=== PATIENT | male | born 1955 ===

== ENCOUNTER 2017-02-04 08:44 | Emergency (ER) | payer OTHER, MEDICAID ==
[2017-02-04 08:48] VITALS: O2SAT 98
[2017-02-04] MEDS ORDERED: Naproxen 550 mg Tab PO STA (09:01)
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
[2017-02-04 10:05] VITALS: BP 137/87; PULSE 80; RESP 20; TEMP 97.9
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
--- NOTE | 2017-02-04 16:03 | RAD ---
PROCEDURE: Cervical Spine Radiographs. HISTORY: Pain. COMPARISON: None. FINDINGS: BONES: Vertebral bodies maintained in height. Transverse processes and posterior elements appear intact. Normal alignment is maintained. There is straightening of the normal lordotic curvature indicating possible muscular spasm. The atlantoaxial articulation and odontoid process are intact. DISC SPACES: Normal. SOFT TISSUES: Normal. No prevertebral soft tissue swelling. OTHER FINDINGS: None. IMPRESSION: Possible muscle spasm. No fracture/ dislocation.
== END 2017-02-04 09:56 | disposition home or self-care (01) ==
LOC: C.ER 08:44
DX: S33.5XXA Sprain of ligaments of lumbar spine, initial encounter (principal); S13.4XXA Sprain of ligaments of cervical spine, initial encounter; V44.0XXA Car driver injured in collision with heavy transport vehicle or bus in nontraffic accident, initial encounter; Y92.410 Unspecified street and highway as the place of occurrence of the external cause